=== PATIENT | female | born 1990 | race Caucasian/White ===

== ENCOUNTER → 2017-04-13 | Outpatient (CLI) | payer OTHER | END | disposition home or self-care (01) | LOC: KCIC 13:25 | DX: M25.571 Pain in right ankle and joints of right foot (principal) | CPT/HCPCS: 73610; 73630 ==

== ENCOUNTER → 2017-12-20 | Outpatient (CLI) | payer OTHER ==
[2014-11-07 17:04] VITALS: BP 114/63
--- NOTE | 2017-12-20 11:02 | RAD ---
EXAM: Right knee, 2 views; right hip, 2 views. HISTORY: Disability assessment. COMPARISON: None. FINDINGS: Right knee: 2 views the right knee are obtained. There is minimal lateral compartment spurring. There is no fracture, dislocation or subluxation. There is no joint effusion. Left hip: 2 views of the left hip are obtained. There is no fracture, dislocation or subluxation. IMPRESSION: 1. No acute osseous finding. 2. Minimal lateral compartment osteoarthritis of the right knee. Electronically signed by: Melinda Haji MD (12/20/2017 10:59 AM) [place] [id number]
== END | disposition home or self-care (01) ==
LOC: RAD 10:02
PROVIDERS: ATTEND Surgery
DX: Z02.71 Encounter for disability determination (principal); M17.11 Unilateral primary osteoarthritis, right knee
CPT/HCPCS: 73502; 73560

== ENCOUNTER → 2018-02-01 | Outpatient (CLI) | payer OTHER ==
[2014-11-07 17:04] VITALS: BP 114/63
--- NOTE | 2018-02-01 13:33 | KCIC ---
MR of the right knee Indication: Right knee pain, previous meniscus surgery, fell 2 months ago, hyperextension, instability. Technique: The standard multiplanar sequences are obtained. FINDINGS: Artifact: No significant image degradation. Medial meniscus:Intact. Lateral meniscus: Minimal blunting of the free margin of the body of the lateral meniscus on a single coronal slice. Anterior cruciate ligament: Intact Posterior cruciate ligament: Intact Medial collateral ligament: Intact. Lateral structures: * Iliotibial band: Intact. * Lateral collateral ligament: Intact. * Biceps femoris tendon: Intact * Popliteus tendon attachment: Intact Extensive mechanism: * Patellar tendon: Intact * Quadriceps tendon: Intact * Retinacular structures: Intact Fluid: Trace joint effusion. No significant Cornejo's cyst. Intra-articular bodies: None visualized Joint compartments * patellofemoral joint:Intact * medial compartment:Intact * lateral compartment:Intact Bones: No significant lesion or acute fracture. Soft tissue: Multiloculated cystic lesion within the infrapatellar fat medially this has a serpiginous morphology and could represent a ganglion cyst, or a small vascular lesion such as malformation or hemangioma. Impression: 1. Multiloculated irregular serpiginous cystic lesion within the infrapatellar fat medially, likely a ganglion cyst. This could also represent a small vascular malformation or angioma. Difficult to measure due to its very irregular morphology but measures about 3.5 cm in long axis. 2. Mild single slice blunting of the lateral meniscus on a coronal image, could be due to prior meniscectomy. Small tear is possible but not definitive. Electronically signed by: Chas Hu MD (02/01/2018 1:29 PM) [facility]
== END | disposition home or self-care (01) ==
LOC: KCIC MRI 11:20
PROVIDERS: ATTEND Physician Assistant Surgical
DX: M25.861 Other specified joint disorders, right knee (principal)
CPT/HCPCS: 73721

== ENCOUNTER → 2019-01-01 | Outpatient (CLI) | payer OTHER ==
[2014-11-07 17:04] VITALS: BP 114/63
--- NOTE | 2019-01-01 15:07 | KCIC ---
EXAM: Pelvis and bilateral hips, 5 views; lumbosacral spine, 5 views. HISTORY: Pain. COMPARISON: 12/20/2017. FINDINGS: Bilateral hips and pelvis: A frontal view of the pelvis and frontal and frog-leg views of both hips are obtained. There is no fracture, dislocation or subluxation. The femoral heads are normal in configuration. Lumbosacral spine: 5 views of the lumbosacral spine are obtained. There is no listhesis. There is mild multilevel endplate remodeling. There is disc space narrowing at L4-L5.. No fracture is seen. IMPRESSION: 1. Multilevel endplate remodeling and suspected degenerative disc space narrowing at L4-L5. 2. No acute osseous finding. Electronically signed by: Melinda Haji MD (01/01/2019 3:04 PM) [facility]
== END | disposition home or self-care (01) ==
LOC: KCIC 12:55
PROVIDERS: ATTEND Physician Assistant Medical
DX: M54.42 Lumbago with sciatica, left side (principal); M54.41 Lumbago with sciatica, right side; M25.552 Pain in left hip; M25.551 Pain in right hip
CPT/HCPCS: 72110; 73521

== ENCOUNTER → 2019-01-05 | Outpatient (CLI) | payer MEDICAID ==
[2014-11-07 17:04] VITALS: BP 114/63
--- NOTE | 2019-01-05 13:04 | KCIC ---
EXAM: Right knee, 3 views. HISTORY: Pain. COMPARISON: None. FINDINGS: 3 views of the right knee are obtained. There is no fracture, dislocation or subluxation. There is a trace joint effusion. IMPRESSION: 1. No acute osseous finding. 2. Trace right knee effusion. Electronically signed by: Melinda Haji MD (01/05/2019 1:01 PM) [id number]
== END | disposition home or self-care (01) ==
LOC: KCIC 12:14
PROVIDERS: ATTEND Physician Assistant Medical
DX: S89.91XA Unspecified injury of right lower leg, initial encounter (principal); S79.911A Unspecified injury of right hip, initial encounter; X58.XXXA Exposure to other specified factors, initial encounter; Y93.89 Activity, other specified; Y92.89 Other specified places as the place of occurrence of the external cause; Y99.8 Other external cause status
CPT/HCPCS: 73562

== ENCOUNTER → 2019-03-12 | Outpatient (CLI) | payer MEDICAID ==
[2014-11-07 17:04] VITALS: BP 114/63
--- NOTE | 2019-03-12 16:01 | KCIC ---
CERVICAL SPINE WO CONTRAST DATE: 03/12/2019 2:00 PM INDICATION: Chronic neck pain and tightness radiating to left scapula TECHNIQUE: Multiplanar multisequence magnetic resonance imaging of the cervical spine was performed without administration of intravenous contrast using the standard cervical spine protocol. COMPARISON: None. FINDINGS: Straightening of the cervical lordosis. No acute fracture. The intervertebral discs are normal. Bone marrow signal intensity is normal. The spinal cord is normal in signal intensity. On the limited views of the cranial cavity and brain, the cerebellum and maggi have normal morphology and signal characteristics. No Chiari malformation. No soft tissue abnormality. Normal signal voids are present in the vertebral arteries. No significant spinal canal stenosis or neural foraminal narrowing. IMPRESSION: No significant spinal canal stenosis or neural foraminal narrowing. Electronically signed by: Curly Newsome MD (03/12/2019 3:58 PM) [facility]
== END | disposition home or self-care (01) ==
LOC: KCIC MRI 13:34
PROVIDERS: ATTEND Physician Assistant Medical
DX: M54.2 Cervicalgia (principal)
CPT/HCPCS: 72141

== ENCOUNTER → 2019-04-12 | Outpatient (CLI) | payer MEDICAID ==
[2014-11-07 17:04] VITALS: BP 114/63
--- NOTE | 2019-04-12 12:36 | KCIC ---
Complete abdominal ultrasound 04/12/2019 10:00 AM Clinical History: Right upper abdominal pain. Technique: Ultrasound examination of the abdomen was performed, and multiple static images were submitted for review. Comparison: Hepatobiliary scan December 29, 2015 Findings: Visualized pancreas is unremarkable. Aorta and IVC are poorly visualized secondary to overlying bowel gas. The gallbladder is normal in appearance without evidence of wall thickening, stones, or sludge. No pericolic cystic fluid is seen. Sonographic Cedeño sign is negative. The liver is normal in size measuring 16 cm longitudinally. Hepatic echotexture is grossly normal. No focal hepatic lesions are seen. No intrahepatic biliary dilatation is seen. The common bile duct measures 3 mm in diameter. Right kidney is normal in appearance measuring 11.6 cm longitudinally. The spleen is top normal in size measuring between 11 and 12 cm longitudinally was otherwise unremarkable. Left kidney is unremarkable in appearance measuring 11.5 cm in length. IMPRESSION: No sonographic evidence of acute intra-abdominal abnormality Electronically signed by: Osmel Perez MD (04/12/2019 12:33 PM) [id number]
== END | disposition home or self-care (01) ==
LOC: KCIC US 09:29
PROVIDERS: ATTEND Physician Assistant Medical
DX: R10.11 Right upper quadrant pain (principal)
CPT/HCPCS: 76700

== ENCOUNTER → 2019-12-12 | Outpatient (CLI) | payer MEDICAID ==
[2014-11-07 17:04] VITALS: BP 114/63
--- NOTE | 2019-12-12 12:58 | RAD ---
INDICATION: Reason: Right Knee Pain; HX of RT Knee Arthroscopy 12-07-19 Spl. Instructions: / History: COMPARISON: None. TECHNIQUE: Grayscale, color and doppler ultrasound images were obtained of the right lower extremity venous vasculature. RIGHT: No thrombus identified in the common femoral vein, femoral vein, popliteal vein or visualized calf veins. IMPRESSION: * No thrombus identified in deep venous system of right lower extremity. Electronically signed by: Robert Mdcaniel MD (12/12/2019 12:55 PM) [id number]
== END | disposition home or self-care (01) ==
LOC: US 11:59
PROVIDERS: ATTEND Orthopaedic Surgery
DX: M25.561 Pain in right knee (principal); Z98.890 Other specified postprocedural states
CPT/HCPCS: 93971

== ENCOUNTER → 2019-12-28 | Outpatient (CLI) | payer MEDICAID ==
[2014-11-07 17:04] VITALS: BP 114/63
--- NOTE | 2019-12-28 17:04 | KCIC ---
EXAMINATION: MRI LEFT KNEE WITHOUT IV CONTRAST CLINICAL HISTORY: History of arthroscopic left knee surgery. Generalized all over pain, instability. Prior surgical hx, unsure of details. TECHNIQUE: Multiplanar multisequential images obtained through the knee without intravenous contrast. COMPARISON: Left knee radiographs 12/15/2015 FINDINGS: MENISCI: Medial Meniscus: Intact. Lateral Meniscus: Intact. LIGAMENTS: ACL: Intact PCL: Intact MCL: Intact LCL Complex: Intact CARTILAGE: Medial Femoral Condyle: Normal Medial Tibial Plateau: Normal Lateral Femoral Condyle: Small areas(s) of predominantly low grade (less than 50% thickness) cartilage loss and or fissuring with smaller area(s) of full thickness cartilage loss and or fissuring with subchondral marrow reactive/cystic changes in the posterior condyle Lateral Tibial Plateau: Normal Patella: Single high grade (greater than 50% thickness) cartilage fissure in the medial facet with linear oblique course measuring up to 1.7 cm in length, potentially creating a nondisplaced chondral flap (series 3 image 10). Trochlea: Normal TENDONS: The distal quadriceps and patellar tendons are intact. The popliteus tendon is intact. BONES AND MARROW: No evidence of acute fracture or suspicious marrow replacing process. MUSCLES: Muscle bulk and signal intensity within normal limits. JOINT FLUID AND SYNOVIUM: Trace joint effusion. No synovitis. No Cornejo's cyst. IMPRESSION: High-grade chondral fissure in the medial patella potentially creating a nondisplaced chondral flap and mild full-thickness chondral wear in the posterior lateral femoral condyle. No meniscal tear or ligamentous injury. Electronically signed by: Erwin Fagan DO (12/28/2019 5:01 PM) [id number]
== END | disposition home or self-care (01) ==
LOC: KCIC MRI 14:22
PROVIDERS: ATTEND Orthopaedic Surgery
DX: M22.42 Chondromalacia patellae, left knee (principal); Z98.890 Other specified postprocedural states
CPT/HCPCS: 73721

== ENCOUNTER → 2020-02-12 | Outpatient (CLI) | payer MEDICAID ==
[2014-11-07 17:04] VITALS: BP 114/63
[~2020-02-12] MED LIST: ASPI325T11 PO; CHOL2400 MC; DEXT30CA15 PO; FLUT1DIS3 IH; MONT10TA11 PO; NALT1TAB PO; OMEP40CA45 PO; PROAIR RESPICL90 MCG; TOPI100T8 PO
== END ==
LOC: LAB 13:51
PROVIDERS: ATTEND Orthopaedic Surgery
DX: Z01.812 Encounter for preprocedural laboratory examination (principal); Z20.828 Contact with and (suspected) exposure to other viral communicable diseases
CPT/HCPCS: U0003

== ENCOUNTER 2020-02-15 06:05 | Day surgery (SDC) | payer MEDICAID ==
[~2020-02-15] VITALS: Ht 172.7 cm; Wt 82.1 kg
[2020-02-15] MEDS ORDERED: EPINEPHrine VIAL 30 MG/30 ML VIAL ONE (06:56)
[2020-02-15] MEDS ORDERED: BUPIVACAINE MPF 0.25% 30 ML VIAL. ONE ×4 (06:56→08:33)
[2020-02-15] MEDS ORDERED: ONDANSETRON PF 4 MG/2 ML VIAL. IV PRN (07:00)
[2020-02-15] MEDS ORDERED: IV RINGERS,LACTATED 1000ML 1,000 ML IV SCH (07:00)
[2020-02-15] MEDS ORDERED: fentaNYL PF VIAL 100 MCG/2 ML VIAL IV PRN ×2 (07:00)
[2020-02-15] MEDS ORDERED: MORPHINE SULFATE 2 MG/ML VIAL. IV PRN (07:00)
[2020-02-15] MEDS ORDERED: LIDOCAINE 1% PF 2 ML VIAL. ID PRN (07:00)
[2020-02-15] MEDS ORDERED: HYDROmorphone 2 MG/ML VIAL IV PRN (07:00)
[2020-02-15] MEDS ORDERED: PROCHLORPERAZINE 10 MG/2 ML VIAL. IV PRN (07:00)
[2020-02-15] MEDS ORDERED: SEVOFLURANE 61 TO 120 MINUTES. IH ONE (07:03)
[2020-02-15] MEDS ORDERED: LIDOCAINE 2% PF 5 ML VIAL. ONE (07:03)
[2020-02-15] MEDS ORDERED: MIDAZOLAM HCL/PF 2 MG/2 ML VIAL. ONE (07:03)
[2020-02-15] MEDS ORDERED: fentaNYL PF VIAL 100 MCG/2 ML VIAL ONE ×2 (07:03→11:28)
[2020-02-15] MEDS ORDERED: PROPOFOL 10 MG/ML (20ML) VIAL. IV ONE ×2 (07:03→10:52)
[2020-02-15] MEDS ORDERED: ONDANSETRON PF 4 MG/2 ML VIAL. ONE (07:03)
[2020-02-15] MEDS ORDERED: DEXAMETHASONE SOD PHOS 4 MG/ML VIAL ONE (07:03)
[2020-02-15] MEDS ORDERED: BUPIVACAINE-EPI 0.25%-1:200000 MPF 30 ML VIAL. INJ ONE ×2 (07:15)
[2020-02-15] MEDS ORDERED: PROP20TA PO (07:21)
[2020-02-15 08:28] LABS: PREG TEST PT QUAL NEGATIVE (NEG)
[2020-02-15] MEDS ORDERED: PHENYLEPHRINE in 0.9% NACL PF 1 MG/10 ML SYRINGE. IV ONE (10:40)
[2020-02-15] MEDS ORDERED: ePHEDrine PF IN SALINE 50 MG/10 ML SYRINGE. IV ONE (10:40)
[2020-02-15] MEDS ORDERED: GLYCOPYRROLATE 1 MG/5 ML VIAL. ONE (11:03)
--- NOTE | 2020-02-15 11:36 | PDOC4 ---
Operative Note Operative Note Date of Procedure: February 15, 2020 Preoperative Diagnosis: left knee chondromalacia Postoperative Diagnosis: left knee chondromalacia Procedures Performed: left knee arthroscopy with shaving chondroplasty, and arthroscopic lateral release Surgeon: Dave Mederos MD Anesthesia: General Estimated Blood Loss: 5 mL Specimens: none Drains: none Complications: none Tourniquet time: approximately 30 minutes at 300 mm Hg Indications for Procedure: The patient is a 29-year-old with left knee pain, unrelieved with nonoperative treatment. Exam and MRI are consistent with chondromalacia and possible loose chondral flap. We talked about the risks and benefits of proceeding with an arthroscopic procedure. We talked about potential risks of ongoing pain, progressive arthritis, bleeding, infection, blood clots, or other potential surgical or anesthetic complications. All of the patient's questions about surgery were answered and they desired to proceed. Written consent was obtained. Description of Operation: The patient was identified in the preoperative holding area. The correct left knee was marked by me. The patient was taken to the operating room, where a general anesthetic was used. Preoperative antibiotics were given intravenously. A time-out procedure was performed. A tourniquet was placed on the upper thigh. Local anesthetic 20 mL of 0.5% bupivacaine was injected using sterile technique into the knee joint. The limb was prepared circumferentially with ChloraPrep solution and sterile waterproof arthroscopy drapes were applied. The limb was exsanguinated with an Esmarch bandage and the tourniquet was inflated. Lateral and medial arthroscopy portals were established. There was moderate ante rior synovitis in the anterior compartment, and synovectomy was performed for visualization The medial meniscus was normal and stable to probing. The medial tibiofemoral joint showed normal articular surfaces so no chondroplasty was required. The intercondylar notch was free of loose bodies, and the ACL was intact. The lateral tibiofemoral joint was examined. The lateral meniscus was normal. The lateral articular surfaces showed chondromalacia Out[place]bridge grade II, so a shaving chondroplasty was performed removing loose unstable fragments of articular cartilage. There is fissuring anteriorly to posteriorly on the lateral tibial articular surface and fibrillation of the lateral tibial cartilage. The patella had an unusual area of chondromalacia with a blister or softening over a large area nearly 20 x 20 mm, without any break in the surface of the cartilage. This starts at the lateral facet, about 2 or 3 mm from the edge of the lateral patella, extends throughout the midportion of the patella and into the medial facet. It likewise extends from near the inferior pole of the patella to above the midportion of the patella. The probe shows this area of cartilage able to be depressed, similar to a blister, but without any loose flaps. I am afraid if I start removing cartilage I will leave her with an extensive area of cartilage loss. There does seem to be excess pressure, and a tight lateral retinaculum. My hope is that with the lateral release, this cartilage blister can heal and stabilize. The alternative I believe would be a large patellar osteochondral allograft, approximately 20 mm in diameter. Patellar tracking was assessed arthroscopically, at the patella is tilted laterally. An arthroscopic lateral release was performed with the Revenew Edge thermal energy device from the distal portion of the vastus lateralis, to the lateral portal. Evaluation of patellar tracking after the release shows improved alignment and less tilt of the patella and better distribution patellofemoral contact with slight flexion. Copious irrigation was used to drain all chondral fragments, and the knee was drained of fluid. The portals were closed with #3-0 Prolene interrupted sutures. Additional local anesthetic, 20 mL of 0.5% bupivacaine with epinephrine was injected. A bulky sterile dressing was applied and the tourniquet was released. Needle and sponge counts were correct and there were no apparent complications. DAVE MEDEROS MD Feb 15, 2020 11:36
[2020-02-15 11:40] VITALS: BP 116/71
[2020-02-15] MEDS ORDERED: oxyCODONE/APAP 5/325 1 TAB TABLET ONE (12:22)
[2020-02-15] MEDS ORDERED: oxyCODONE/APAP 5/325 1 TAB TABLET PO ONE (12:30)
[2020-02-15] MEDS ORDERED: oxyCODONE/APAP 5/325 1 TAB TABLET PO PRN (12:45)
== END 2020-02-15 12:45 | disposition home or self-care (01) ==
LOC: SURG 06:05
PROVIDERS: ATTEND Orthopaedic Surgery
DX: M94.262 Chondromalacia, left knee (principal); M65.88 Other synovitis and tenosynovitis, other site; F41.9 Anxiety disorder, unspecified; G43.909 Migraine, unspecified, not intractable, without status migrainosus; J45.909 Unspecified asthma, uncomplicated; E66.9 Obesity, unspecified; K21.9 Gastro-esophageal reflux disease without esophagitis; F17.210 Nicotine dependence, cigarettes, uncomplicated; Z79.82 Long term (current) use of aspirin; Z79.899 Other long term (current) drug therapy; Z98.890 Other specified postprocedural states; Z91.040 Latex allergy status; Z88.8 Allergy status to other drugs, medicaments and biological substances
CPT/HCPCS: 29873; 84703; A7015; J0171; J0690; J1100; J2250; J2370; J2405; J2704; J3010; J3490; J7120

== ENCOUNTER → 2020-03-26 | Outpatient (CLI) | payer MEDICAID ==
[~2020-03-26] MED LIST changes: +CYCL10TA2 PO; +MIDO10TA PO; -MONT10TA11 PO; +MONT10TA94 PO; +OXYC1TAB19 PO; +PROP20TA PO
--- NOTE | 2020-03-26 16:13 | KCIC ---
EXAM: MRI RIGHT KNEE DATE: 03/26/2020 1:45 PM CLINICAL INDICATION: RIGHT KNEE PAIN, Two prior knee surgeries total. COMPARISON: 03/20/2020. TECHNIQUE: Multiplanar, multisequence MRI of the right knee was performed without contrast. FINDINGS: Small knee joint effusion. No Cornejo's cyst. The ACL and PCL are intact. The MCL, fibular collateral ligament, biceps femoris and IT band are intact. Popliteus is intact, nor mal in signal and morphology. Extensor mechanism is intact. Neutral patellar tracking. Medial meniscus: Trace blunting body segment medial meniscus likely from prior partial meniscectomy c hange. No discrete meniscal tear is seen. Lateral meniscus: Intact Deformity of Hoffa's fat pad likely from prior arthroscopy. Suprapatellar fat pad edema may be seen w ith anterior knee pain/impingement Full-thickness cartilage defect in the posterior aspect of the lateral femoral condyle measures 6 mm transverse dimension with subchondral edema and cystic change. No fracture or osteonecrosis. IMPRESSION: 1. Full-thickness cartilage defect at the posterior aspect of the lateral femoral condyle with subch ondral edema and cystic change. 2. Postsurgical changes of prior arthroscopy are seen. Trace blunting free edge medial meniscus like ly from prior partial meniscectomy change. No definite medial or lateral meniscus tear is identified. Electronically signed by: Pipo Koehler MD (03/26/2020 4:11 PM) [id number]
== END ==
LOC: KCIC MRI 13:28
PROVIDERS: ATTEND Orthopaedic Surgery
DX: M25.461 Effusion, right knee (principal); M21.861 Other specified acquired deformities of right lower leg
CPT/HCPCS: 73721

== ENCOUNTER → 2020-03-26 | Outpatient (CLI) | payer MEDICAID ==
--- NOTE | 2020-03-29 14:28 | NUR ---
IP: Informed pt of positive COVID test and the need to quarantine for 14 days. Informed her surgery would be postponed and to followup wtih Dr. Mederos's office on Tuesday. Notified Dr. Mederos of pt's results.
== END ==
LOC: LAB 13:00
PROVIDERS: ATTEND Orthopaedic Surgery
DX: Z01.812 Encounter for preprocedural laboratory examination (principal); M25.561 Pain in right knee; U07.1 COVID-19
CPT/HCPCS: U0003

== ENCOUNTER → 2020-04-15 | Outpatient (CLI) | payer MEDICAID ==
[~2020-04-15] MED LIST changes: +MONT10TA20 PO; -MONT10TA94 PO
--- NOTE | 2020-04-16 15:00 | NUR ---
NOTIFIED LEONARDO AT DR ENRIQUE'S OFFICE OF THE POSITIVE COVID RESULT. LEONARDO IS TO NOTIFY THE PATIENT.
== END ==
LOC: LAB 13:51
PROVIDERS: ATTEND Orthopaedic Surgery
DX: Z01.812 Encounter for preprocedural laboratory examination (principal); U07.1 COVID-19; M22.42 Chondromalacia patellae, left knee; M27.5 Periradicular pathology associated with previous endodontic treatment; Z91.018 Allergy to other foods; Z91.040 Latex allergy status; Z91.048 Other nonmedicinal substance allergy status
CPT/HCPCS: U0003

== ENCOUNTER 2020-05-12 09:00 | Inpatient (IN) | payer MEDICAID ==
[~2020-05-12] VITALS: Ht 172.7 cm; Wt 86.6 kg
[2020-05-12] VITALS (9 sets, daily range): BP systolic 97–115; BP diastolic 41–72
[~2020-05-12 09:00] MED LIST changes: +BUPIVACAINE-EPI 0.25% 30 ML VIAL KIT. ONE; +DEXAMETHASONE SOD PHOS 4 MG/ML VIAL ONE; +DEXT30TA2 PO; +IV RINGERS,LACTATED 1000ML 1,000 ML IV SCH; +LIDOCAINE 2% PF 5 ML VIAL. ONE; +ONDANSETRON PF 4 MG/2 ML VIAL. ONE; +PROCHLORPERAZINE 10 MG/2 ML VIAL. IVP PRN; +PROPOFOL 10 MG/ML (20ML) VIAL. IV ONE; +fentaNYL PF VIAL 100 MCG/2 ML VIAL IVP PRN
[2020-05-12] MEDS ORDERED: fentaNYL PF VIAL 100 MCG/2 ML VIAL ONE ×3 (09:20→12:40)
--- NOTE | 2020-05-12 10:52 | PDOC1 ---
History and Physical Date of Admission Date of Admission DATE: 05/12/20 TIME: 10:49 Identification/Chief Complaint Chief Complaint Left knee pain Source Source: Chart review, Patient History of Present Illness History of Present Illness 29-year-old with left knee pain, patellar cartilage flap Past Medical History Past Medical History Anxiety. Migraine headaches. Neurogenic orthostatic hypotension. Dysautonomia. Fibromyalgia. Low back pain. Past Surgical History Past Surgical History arthroscopic knee surgery 2012 right hand cyst Left Knee arthroscopy 01/2018 Right Knee arthroscopy 04/28/18 Right Knee Scope with Synovectomy 12/07/2019 12/07/2019 Family History Family History Mother: alive, anxiety, diagnosed with Hypertension Father: alive, hypertension, anxiety, Hypertension no family history of dysautonomia or Parkinson's. Social History Smoke: No ALCOHOL: none Current Medications Current Medications Current Medications Fentanyl Citrate (Fentanyl 2ml Vial) 25 mcg PRN Q5MIN PRN IVP MILD PAIN 1-3; Start 05/12/20 at 06:00; Stop 05/13/20 at 05:59 Fentanyl Citrate (Fentanyl 2ml Vial) 50 mcg PRN Q5MIN PRN IVP MODERATE PAIN 4- 6; Start 05/12/20 at 06:00; Stop 05/13/20 at 05:59 Morphine Sulfate (Morphine Sulfate) 1 mg PRN Q10MIN PRN IVP SEVERE PAIN 7-10; Start 05/12/20 at 06:00; Stop 05/13/20 at 05:59 Ringer's Solution 1,000 ml @ 30 mls/hr Q24H IV Last administered on 05/12/20at 10:24; Start 05/12/20 at 06:00; Stop 05/12/20 at 17:59 Hydromorphone HCl (Dilaudid) 0.5 mg PRN Q10MIN PRN IVP SEVERE PAIN 7-10, 2nd CHOICE; Start 05/12/20 at 06:00; Stop 05/13/20 at 05:59 Prochlorperazine Edisylate (Compazine) 5 mg PACU PRN PRN IVP NAUSEA, MRX1; Start 05/12/20 at 06:00; Stop 05/13/20 at 05:59 Cefazolin Sodium/ Dextrose 50 ml @ 100 mls/hr 1X PREOP PRN IV PRIOR TO PROCEDU RE; Start 05/12/20 at 06:00; Stop 05/12/20 at 18:00 Bupivacaine HCl/ Epinephrine Bitart (Sensorcain-Epi 0.25% Kit) 30 ml STK-MED O NCE .ROUTE ; Start 05/12/20 at 07:09; Stop 05/12/20 at 07:09; Status DC Propofol (Diprivan) 200 mg STK-MED ONCE IV ; Start 05/12/20 at 08:51; Stop 05/12/20 at 08:51; Status DC Lidocaine HCl (Lidocaine Pf 2% Vial) 5 ml STK-MED ONCE .ROUTE ; Start 05/12/20 at 08:51; Stop 05/12/20 at 08:52; Status DC Dexamethasone Sodium Phosphate (Decadron) 4 mg STK-MED ONCE .ROUTE ; Start 05/12/20 at 08:51; Stop 05/12/20 at 08:52; Status DC Ondansetron HCl (Zofran) 4 mg STK-MED ONCE .ROUTE ; Start 05/12/20 at 08:51; Stop 05/12/20 at 08:52; Status DC Fentanyl Citrate (Fentanyl 2ml Vial) 100 mcg STK-MED ONCE .ROUTE ; Start 05/12/20 at 09:20; Stop 05/12/20 at 09:21; Status DC Active Scripts Active Reported Adderall 30 Mg Tablet (Dextroamphetamine/Amphetamine) 30 Mg Tablet 30 Mg PO DAILY Midodrine Hcl 10 Mg Tablet 10 Mg PO BID Percocet 7.5-325 Mg Tablet (Oxycodone/Acetaminophen) 1 Each Tablet 1 Tab PO PRN Q6HRS PRN Cyclobenzaprine Hcl 10 Mg Tablet 1 Tab PO DAILY Vitamin D3 (Cholecalciferol (Vitamin D3)) 2,400 Unit/1 Ml Liquid 5,000 Unit MC DAILY Advair 250-50 Diskus (Fluticasone/Salmeterol) 1 Each Disk.w.dev 1 Puff IH BID Proair Respiclick (Albuterol Sulfate) 90 Mcg Aer.pow.ba 2 Puff PRN Q6HRS PRN Omeprazole 40 Mg Capsule. 1 Cap PO QAM Topiramate 100 Mg Tablet 1 Tab PO BID Contrave ER 8-90 mg Tablet (Naltrexone HCl/Bupropion HCl) 1 Each Tablet.er 2 Tab PO BID Montelukast Sodium 10 Mg Tablet 1 Tab PO DAILY Allergies Allergies: Coded Allergies: adhesive tape (Verified Allergy, Intermediate, Rash, 03/25/20) latex (Verified Allergy, Intermediate, Rash, 03/25/20) tomato (Verified Adverse Reaction, Intermediate, Rash, 05/08/20) Physical Exam General: Alert, Cooperative HEENT: Atraumatic Lungs: Normal air movement Heart: RRR Abdomen: Soft Extremities: Other ( The incisions are benign. There is a large effusion. The calf is soft and nontender. Range of motion of the knee is pain-free except at the extremes. Still descries painful giving way of the knee. There is no evidence of neurovascular injury, DVT or infection. ) Skin: No breakdown, No significant lesion Neuro: Normal speech, Normal tone, Sensation intact Psych/Mental Status: Mental status NL, Mood NL Vitals Vitals Vital Signs Date Time Temp Pulse Resp B/P (MAP) Pulse Ox O2 Delivery O2 Flow Rate FiO2 05/12/20 09:49 97.1 84 18 112/70 100 Room Air 97.1 Labs Labs Laboratory Tests Test 05/12/20 09:24 Bedside Urine HCG, Qualitative Hcg negative (Negative) Laboratory Tests Test 05/12/20 09:24 Bedside Urine HCG, Qualitative Hcg negative (Negative) Images Images Series 3 image 13 shows the large chondral defect on the MRI of the left knee PATIENT: EDIN WEINER ACCOUNT: [id number] : 1990 LOCATION: [facility] MRI AGE: 29 SEX: F EXAM STATUS: REG CLI ORD. PHYSICIAN: DAVE ENRIQUE MD REASON: PRIOR ARTHROSCOPIC KNEE SURGERY PROCEDURE: LOWER EXT JOINT WO LT EXAMINATION: MRI LEFT KNEE WITHOUT IV CONTRAST CLINICAL HISTORY: History of arthroscopic left knee surgery. Generalized all over pain, instability. Prior surgical hx, unsure of details. TECHNIQUE: Multiplanar multisequential images obtained through the knee without intravenous contrast. COMPARISON: Left knee radiographs 12/15/2015 FINDINGS: MENISCI: Medial Meniscus: Intact. Lateral Meniscus: Intact. LIGAMENTS: ACL: Intact PCL: Intact MCL: Intact LCL Complex: Intact CARTILAGE: Medial Femoral Condyle: Normal Medial Tibial Plateau: Normal Lateral Femoral Condyle: Small areas(s) of predominantly low grade (less than 50% thickness) cartilage loss and or fissuring with smaller area(s) of full thickness cartilage loss and or fissuring with subchondral marrow reactive/cystic changes in the posterior condyle Lateral Tibial Plateau: Normal Patella: Single high grade (greater than 50% thickness) cartilage fissure in the medial facet with linear oblique course measuring up to 1.7 cm in length, potentially creating a nondisplaced chondral flap (series 3 image 10). Trochlea: Normal TENDONS: The distal quadriceps and patellar tendons are intact. The popliteus tendon is intact. BONES AND MARROW: No evidence of acute fracture or suspicious marrow replacing process. MUSCLES: Muscle bulk and signal intensity within normal limits. JOINT FLUID AND SYNOVIUM: Trace joint effusion. No synovitis. No Cornejo's cyst. IMPRESSION: High-grade chondral fissure in the medial patella potentially creating a nondisplaced chondral flap and mild full-thickness chondral wear in the posterior lateral femoral condyle. No meniscal tear or ligamentous injury. Electronically signed by: Erwin Mccoy DO (12/28/2019 5:01 PM) [id number] DICTATED and SIGNED BY: ERWIN MCCOY DO DATE: 12/28/191700 VTE Prophylaxis Ordered VTE Prophylaxis Devices: Yes VTE Pharmacological Prophylaxi: Yes Assessment/Plan Assessment/Plan She has a large chondral defect on the patella of the left knee with recurrent pain, effusions and instability. I recommended an osteochondral allograft procedure which we discussed in detail along with the expected postoperative rehab protocol. We talked about the potential risks of ongoing pain or dysfunction, failure of the cartilage graft, infection, neurovascular injury, bleeding, osteoarthritis, blood clots, or other potential surgical or anesthetic complications. All of her questions about surgery were answered and she desires to proceed. I recommended arthroscopic evaluation of the lesion prior to the op en osteochondral allograft. She agrees. Justifications for Admission Other Justification DAVE ENRIQUE MD May 12, 2020 10:52
[2020-05-12] MEDS ORDERED: BUPIVACAINE-EPI 0.25% 30 ML VIAL KIT. ONE (10:59)
[2020-05-12] MEDS ORDERED: EPINEPHrine VIAL 30 MG/30 ML VIAL ONE (11:04)
[2020-05-12] MEDS ORDERED: FAMOTIDINE 20 MG/2 ML VIAL ONE (11:19)
[2020-05-12] MEDS ORDERED: PROPOFOL 10 MG/ML (20ML) VIAL. IV ONE (11:56)
[2020-05-12] MEDS ORDERED: PHENYLEPHRINE in 0.9% NACL PF 1 MG/10 ML SYRINGE. IV ONE (11:56)
[2020-05-12] MEDS ORDERED: SEVOFLURANE 61 TO 120 MINUTES. IH ONE (12:00)
[2020-05-12] MEDS: fentaNYL PF VIAL 100 MCG/2 ML VIAL IVP PRN ×2 (12:43→12:48)
[2020-05-12] MEDS ORDERED: MORPHINE SULFATE 2 MG/ML VIAL. ONE (12:50)
[2020-05-12] MEDS ORDERED: PROCHLORPERAZINE 10 MG/2 ML VIAL. ONE (12:50)
--- NOTE | 2020-05-12 12:52 | PDOC4 ---
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 There is a 17 mm defect that I evaluated previously arthroscopically and have seen on MRI. I recommended an osteochondral allograft procedure due to the persistent pain and effusion and large defect size. The patient and I discussed the potential risks of surgery including infection, failure of the graft, blood clots, osteoarthritis, continued pain or instability or effusion, or other potential surgical or anesthetic complications. All of her questions about surgery were answered and she desired to proceed. Dominique Posey. Need there is no anesthetic into that today about 5 other cases still not what I left and now he does not need surgery. 1 probably will need surgery but not today thank you*. Procedure in Detail: The patient was identified in the preoperative holding area. The correct left knee was marked by me. She was taken to the operating room where a general anesthetic was used. Preoperative antibiotics were given intravenously. A timeout procedure was performed. The skin of the lateral knee was prepared with ChloraPrep and 20 mL of 0.25% bupivacaine with epinephrine was injected using sterile technique into the knee joint. A tourniquet was used on the upper thigh. The limb was prepared circumferentially with ChloraPrep solution and sterile drapes were applied. An impervious stockinette was used over the lower limb. An Esmarch bandage was used to exsanguinate the limb. The tourniquet was inflated to 300 mmHg. The prior lateral medial arthroscopy portals were used. The arthroscope was introduced to make sure that there were no loose fragments of cartilage within the knee, and to verify that the lesion is still present. The medial meniscus and medial femoral condyle are normal. The ACL is normal. The lateral joint line is normal. The patella shows the area of unstable cartilage which is easily punctured with an arthroscopic probe, and the area of abnormal cartilage is easily delineated from the normal cartilage by use of the probe. The arthroscope was removed. A longitudinal midline incision was used. Sharp dissection was used. Bovie electrocautery was used for hemostasis. A careful medial parapatellar arthrotomy was performed with care made not to injure the joint nor the menisci. The patella was everted. A probe was again used to palpate the cartilage and the abnormal cartilage was easily identified. A ring curette was used to debride the abnormal cartilage and to remove the calcified cartilage layer beneath this. This was a 17 mm nearly circular lesion at the medial facet of the patella slightly over the midline ridge of the patella. Sharp perpendicular cartilage preparation was performed back to healthy cartilage, using the ring curette. A stable cartilage rim remained, with perpendicular margins. The allograft extracellular matrix cartilage was then rehydrated using the described Arthrex technique. Autologous blood was used for the rehydration. Fibrin glue was also made using spun down precipitate of the patient's blood. Microfracture technique was performed using 0.025 Chuck wire on a wire belly dump driver throughout the underlying lesion. Constant saline irrigation was used during the drilling to perform the perforation and microfracture without burning the bone. The area was thoroughly dried. The pusher device was used to deploy the rehydrated cartilage matrix into the defect. A Guttenberg elevator was used to smooth the cartilage graft without leaving any of the graft proud around the circumference of the normal cartilage. Platelet rich plasma was further added to the applied graft for further rehydration and growth factor. Finally the fibrin glue layer was applied, allowed to harden for 5 minutes. The arthroscopic camera was used intermittently to photograph the open osteochondral allograft procedure. The patella was gently placed back in its normal position, with care made not to injure the graft. The arthrotomy was repaired with #1 Vicryl [id number] sutures. Additional PRP was injected into the knee joint. The skin edges were i njected with 0.25% bupivacaine with epinephrine. The subcutaneous scleral layers were closed with #2-0 Vicryl interrupted sutures. The skin layer was repaired with #3-0 Stratafix Monocryl. Xeroform and a sterile dressing were applied. Care was made not to put pressure on the patella. A knee immobilizer was applied, and the knee was kept at full extension throughout the closure and dressing and knee immobilizer application. DAVE MEDEROS MD May 12, 2020 12:52
[2020-05-12] MEDS: MORPHINE SULFATE 2 MG/ML VIAL. IVP PRN ×2 (12:55→13:05)
[2020-05-12] MEDS ORDERED: PROCHLORPERAZINE 5 MG TABLET. PO PRN (13:00)
[2020-05-12] MEDS ORDERED: diphenhydrAMINE 50 MG/ML VIAL IVP PRN (13:00)
[2020-05-12] MEDS ORDERED: CALCIUM CARBONATE 500 MG TAB.CHEW PO PRN (13:00)
[2020-05-12] MEDS ORDERED: METOCLOPRAMIDE HCL 10 MG/2 ML VIAL. IVP PRN (13:00)
[2020-05-12] MEDS ORDERED: 0.9 % SODIUM CHLORIDE 10 ML DISP.SYRIN. IV PRN (13:00)
[2020-05-12] MEDS: MONTELUKAST SODIUM 10 MG TABLET. PO SCH (13:00)
[2020-05-12] MEDS ORDERED: ZOLPIDEM 5 MG TABLET. PO PRN (13:00)
[2020-05-12] MEDS ORDERED: DEXTROSE 50% 25 GM / 50ML DISP.SYRIN. IV PRN (13:00)
[2020-05-12] MEDS ORDERED: NON FORMULARY ITEM (Albuterol Sulfate (Proair Respiclick) 2 PUFF) PRN (13:00)
[2020-05-12] MEDS ORDERED: HYDROmorphone 2 MG/ML VIAL ONE (13:06)
[2020-05-12] MEDS: HYDROmorphone 2 MG/ML VIAL IVP PRN ×4 (13:10→13:47)
[2020-05-12] MEDS ORDERED: ALBUTEROL SULFATE 2.5 MG/3 ML NEBU. NEB PRN (13:45)
[2020-05-12] MEDS: TOPIRAMATE 100 MG TABLET. PO SCH ×2 (14:00→21:19)
--- NOTE | 2020-05-12 14:05 | NUR ---
Arrived to unit by bed from PACU. Awakens easily but falls back to sleep. No c/o at this time. Dressing intact with immobilizer on left leg with ice pack. Able to wiggle toes easily, warm touch and pedal pulses + bilaterally. IVF's intact and infusing. Side rails up x's 2 with call light in reach. Mother at bedside. Cont. monitor.
[2020-05-12] MEDS: PANTOPRAZOLE 40 MG TABLET.DR. PO SCH (17:13)
[2020-05-12] MEDS: IV NORMAL SALINE 1000ML BAG 1,000 ML IV SCH (17:15)
[2020-05-12] MEDS: oxyCODONE/APAP 10/325 1 TAB TABLET PO PRN ×2 (17:18→21:19)
[2020-05-12] MEDS: ONDANSETRON PF 4 MG/2 ML VIAL. IVP SCH (17:30)
[2020-05-12] MEDS: ONDANSETRON ODT 4 MG TAB.RAPDIS. PO SCH (17:31)
[2020-05-12] MEDS: MIDODRINE 5 MG TABLET PO SCH (18:16)
[2020-05-12] MEDS ORDERED: NON FORMULARY ITEM (Fluticasone/Salmeterol (Advair 250-50 Diskus) 1 PUFF) IH SCH (21:00)
[2020-05-12] MEDS ORDERED: BUPROPION HCL PO SCH (21:00)
[2020-05-12] MEDS ORDERED: NALTREXONE HCL PO SCH (21:00)
[2020-05-12] MEDS: ASPIRIN ENTERIC COATED 325 MG TABLET.DR. PO SCH (21:19)
[2020-05-12] MEDS: BUDESONIDE 0.5 MG/2 ML NEBU. NEB SCH (22:12)
[2020-05-12] MEDS: ALBUTEROL SULFATE 2.5 MG/3 ML NEBU. NEB SCH (22:20)
[2020-05-12] MEDS: MORPHINE SULFATE 4 MG/ML VIAL. IVP PRN (23:02)
[2020-05-13 03:00] VITALS: BP 118/74
[2020-05-13] MEDS: oxyCODONE/APAP 10/325 1 TAB TABLET PO PRN ×3 (05:07→19:35)
[2020-05-13] MEDS: ONDANSETRON PF 4 MG/2 ML VIAL. IVP SCH ×3 (05:55→12:00)
[2020-05-13] MEDS: ONDANSETRON ODT 4 MG TAB.RAPDIS. PO SCH ×3 (05:56→12:00)
[2020-05-13] MEDS ORDERED: MAGNESIUM HYDROXIDE 2,400 MG/30 ML ORAL.SUSP. PO PRN (06:00)
[2020-05-13] MEDS: MORPHINE SULFATE 4 MG/ML VIAL. IVP PRN ×4 (06:25→22:43)
[2020-05-13 07:00] VITALS: BP 97/56
[2020-05-13] MEDS: ALBUTEROL SULFATE 2.5 MG/3 ML NEBU. NEB SCH ×4 (07:40→23:22)
[2020-05-13] MEDS: BUDESONIDE 0.5 MG/2 ML NEBU. NEB SCH ×2 (08:00→19:33)
[2020-05-13] MEDS ORDERED: NON FORMULARY ITEM (Dextroamphetamine/Amphetamine (Adderall 30 Mg Tablet) 30 MG) PO SCH (09:00)
[2020-05-13] MEDS: MIDODRINE 5 MG TABLET PO SCH ×2 (10:06→18:35)
[2020-05-13] MEDS: TOPIRAMATE 100 MG TABLET. PO SCH ×2 (10:07→20:51)
[2020-05-13] MEDS: MONTELUKAST SODIUM 10 MG TABLET. PO SCH (10:07)
[2020-05-13] MEDS: SENNOSIDES/DOCUSATE 8.6/50MG TABLET. PO SCH (10:07)
[2020-05-13] MEDS: PANTOPRAZOLE 40 MG TABLET.DR. PO SCH (10:07)
[2020-05-13] MEDS: ASPIRIN ENTERIC COATED 325 MG TABLET.DR. PO SCH ×2 (10:08→20:51)
[2020-05-13] MEDS: CHOLECALCIFEROL (VITAMIN D3) 5,000 UNIT CAPSULE PO SCH (10:08)
[2020-05-13] MEDS: CYCLOBENZAPRINE 10 MG TABLET. PO SCH (10:08)
[2020-05-13] MEDS: MULTIVITAMIN with MINERAL TABLET. PO SCH (10:08)
[2020-05-13 11:00] VITALS: BP 110/59
[2020-05-13] MEDS ORDERED: ONDANSETRON ODT 4 MG TAB.RAPDIS. PO PRN (12:00)
[2020-05-13] MEDS ORDERED: ONDANSETRON PF 4 MG/2 ML VIAL. IVP PRN (12:00)
[2020-05-13] MEDS: IV NORMAL SALINE 1000ML BAG 1,000 ML IV SCH (13:00)
--- NOTE | 2020-05-13 14:20 | PDOC ---
PROGRESS NOTES Date of Service DATE: 05/13/20 TIME: 14:19 Subjective Subjective My initial plan was that she would be going home today but she does not look ready to go. She is rating her pain at 8/10, she said she almost fell this morning, and she has been using IV pain medicines. She does not look ready to go. Objective Vital Signs Vital Signs Date Time Temp Pulse Resp B/P (MAP) Pulse Ox O2 Delivery O2 Flow Rate FiO2 05/13/20 12:40 97 Room Air 05/13/20 11:00 98.2 86 16 110/59 (76) 98.2 05/12/20 12:43 10.0 Physical Exam The knee dressing is dry. Calf is soft and nontender. The knee immobilizer is in place. She is able to dorsiflex and plantarflex the toes. She has severe difficulty with mobility Labs Laboratory Tests Test 05/12/20 09:24 Bedside Urine HCG, Qualitative Hcg negative (Negative) Assessment Assessment POD# 1 after osteochondral allograft of the left patella Plan Plan of Care Continue with inpatient care for now. Hopefully she can discharge to home tomorrow. Continue physical therapy. Pain control. Justicifation of Admission Dx: Justifications for Admission: Justification of Admission Dx: Yes DAVE ENRIQUE MD May 13, 2020 14:20
[2020-05-13 15:00] VITALS: BP 99/58
[2020-05-13] MEDS ORDERED: BISACODYL 10 MG SUPP.RECT. PR PRN (16:00)
[2020-05-13 19:30] VITALS: BP 123/78
[2020-05-13 23:21] VITALS: BP 101/47
[2020-05-14] MEDS: oxyCODONE/APAP 10/325 1 TAB TABLET PO PRN ×5 (03:13→23:20)
[2020-05-14 03:21] VITALS: BP 118/52
[2020-05-14] MEDS: MORPHINE SULFATE 4 MG/ML VIAL. IVP PRN ×3 (06:28→20:53)
[2020-05-14 07:00] VITALS: BP 92/51
[2020-05-14] MEDS: BUDESONIDE 0.5 MG/2 ML NEBU. NEB SCH ×2 (07:23→20:51)
[2020-05-14] MEDS: ALBUTEROL SULFATE 2.5 MG/3 ML NEBU. NEB SCH ×3 (07:24→20:52)
[2020-05-14] MEDS: ASPIRIN ENTERIC COATED 325 MG TABLET.DR. PO SCH ×2 (08:09→20:52)
[2020-05-14] MEDS: MULTIVITAMIN with MINERAL TABLET. PO SCH (08:09)
[2020-05-14] MEDS: PANTOPRAZOLE 40 MG TABLET.DR. PO SCH (08:09)
[2020-05-14] MEDS: CYCLOBENZAPRINE 10 MG TABLET. PO SCH (08:10)
[2020-05-14] MEDS: TOPIRAMATE 100 MG TABLET. PO SCH ×2 (08:10→20:52)
[2020-05-14] MEDS: CHOLECALCIFEROL (VITAMIN D3) 5,000 UNIT CAPSULE PO SCH (08:10)
[2020-05-14] MEDS: SENNOSIDES/DOCUSATE 8.6/50MG TABLET. PO SCH (08:10)
[2020-05-14] MEDS: MONTELUKAST SODIUM 10 MG TABLET. PO SCH (08:10)
[2020-05-14] MEDS: MIDODRINE 5 MG TABLET PO SCH ×2 (08:12→17:48)
[2020-05-14 11:00] VITALS: BP 101/48
[2020-05-14] MEDS: IV NORMAL SALINE 1000ML BAG 1,000 ML IV SCH (13:00)
[2020-05-14 15:00] VITALS: BP 92/49
--- NOTE | 2020-05-14 18:40 | PDOC ---
PROGRESS NOTES Date of Service DATE: 05/14/20 TIME: 18:38 Subjective Subjective She does not feel well. She said therapy told her she needs more therapy before she can safely go home. She is still requiring IV pain medications. She feels like the leg is swollen and it is difficult to mobilize in the knee immobilizer. Objective Vital Signs Vital Signs Date Time Temp Pulse Resp B/P (MAP) Pulse Ox O2 Delivery O2 Flow Rate FiO2 05/14/20 17:48 116 92/49 05/14/20 15:17 Room Air 05/14/20 15:00 98.6 18 98 98.6 05/14/20 08:00 10.0 Physical Exam The knee immobilizer is in place as it should be. There is some foot swelling and edema which is typical postoperative. There is no evidence of DVT, neurovascular injury, nor compartment syndrome. She does appear very immobile and has difficulty even getting up from the bed. Assessment Assessment POD# 2 after open osteochondral allograft left knee Plan Plan of Care She is progressing but slowly. She will need some additional physical therapy before she can safely discharged home. IV pain medicines when needed but she should transition to oral pain medicines in preparation for discharge home jenny gonsales. Continue aspirin daily for DVT prophylaxis particularly in light of her immobility. Justicifation of Admission Dx: Justifications for Admission: Justification of Admission Dx: Yes DAVE ENRIQUE MD May 14, 2020 18:40
[2020-05-14 19:55] VITALS: BP 95/59
[2020-05-14 23:43] VITALS: BP 98/60
[2020-05-15] MEDS: ALBUTEROL SULFATE 2.5 MG/3 ML NEBU. NEB SCH ×3 (01:00→12:54)
[2020-05-15] MEDS: oxyCODONE/APAP 10/325 1 TAB TABLET PO PRN ×3 (03:20→14:37)
[2020-05-15 03:40] VITALS: BP 96/63
[2020-05-15] MEDS: MORPHINE SULFATE 4 MG/ML VIAL. IVP PRN (05:42)
[2020-05-15] MEDS: IV NORMAL SALINE 1000ML BAG 1,000 ML IV SCH (06:05)
[2020-05-15] MEDS: BUDESONIDE 0.5 MG/2 ML NEBU. NEB SCH (07:08)
[2020-05-15 07:31] VITALS: BP 94/57
[2020-05-15] MEDS: TOPIRAMATE 100 MG TABLET. PO SCH (08:33)
[2020-05-15] MEDS: MONTELUKAST SODIUM 10 MG TABLET. PO SCH (08:33)
[2020-05-15] MEDS: MIDODRINE 5 MG TABLET PO SCH (08:33)
[2020-05-15] MEDS: SENNOSIDES/DOCUSATE 8.6/50MG TABLET. PO SCH (08:33)
[2020-05-15] MEDS: CHOLECALCIFEROL (VITAMIN D3) 5,000 UNIT CAPSULE PO SCH (08:33)
[2020-05-15] MEDS: CYCLOBENZAPRINE 10 MG TABLET. PO SCH (08:34)
[2020-05-15] MEDS: ASPIRIN ENTERIC COATED 325 MG TABLET.DR. PO SCH (08:34)
[2020-05-15] MEDS: PANTOPRAZOLE 40 MG TABLET.DR. PO SCH (08:34)
[2020-05-15] MEDS: MULTIVITAMIN with MINERAL TABLET. PO SCH (08:34)
[2020-05-15 11:06] VITALS: BP 91/52
[2020-05-15 14:37] VITALS: BP 98/49
--- NOTE | 2020-05-15 17:32 | PDOC ---
PROGRESS NOTES Date of Service DATE: 05/15/20 TIME: 17:28 Subjective Subjective Feeling better. Progressed in PT and safe now with knee immobilizer Objective Vital Signs Vital Signs Date Time Temp Pulse Resp B/P (MAP) Pulse Ox O2 Delivery O2 Flow Rate FiO2 05/15/20 16:16 Room Air 05/15/20 14:37 98.7 115 18 98/49 (65) 99 98.7 05/14/20 08:00 10.0 Physical Exam Dressing and knee immobilizer were adjusted because they keep sliding down. Calf soft and NT. NVI. Assessment Assessment POD# 3 after osteochondral allograft Plan Plan of Assisted today. Office FU. No knee ROM yet. Justicifation of Admission Dx: Justifications for Admission: Justification of Admission Dx: Yes DAVE ENRIQUE MD May 15, 2020 17:32
--- NOTE | 2020-05-15 17:50 | PDOC3 ---
Discharge Summary Visit Information Date of Admission: May 12, 2020 Date of Discharge: May 15, 2020 Final Diagnosis Chondromalacia patella left knee Brief Hospital Course Allergies Allergies Coded Allergies Type Severity Reaction Last Updated Verified adhesive tape Allergy Intermediate Rash 03/25/20 Yes latex Allergy Intermediate Rash 03/25/20 Yes tomato Adverse Reaction Intermediate Rash 05/08/20 Yes Vital Signs Vital Signs Date Time Temp Pulse Resp B/P (MAP) Pulse Ox O2 Delivery O2 Flow Rate FiO2 05/15/20 16:16 Room Air 05/15/20 14:37 98.7 115 18 98/49 (65) 99 98.7 05/14/20 08:00 10.0 Brief Hospital Course 29 year old admitted with a full-thickness cartilage defect of the patella, for osteochondral allograft procedure which was performed the day of admission. She was on antibiotics postoperatively for 24 hours due to the allograft. Physical therapy was required because she is to stay nonweightbearing and protect the graft by keeping the knee immobile initially in the knee immobilizer. She progressed slowly with therapy but is now stable for discharge. Discharge Information Condition at Discharge: Stable Follow Up: Weeks Disposition/Orders: D/C to Home Scheduled Cholecalciferol (Vitamin D3) (Vitamin D3), 5,000 UNIT MC DAILY, (Reported) Cyclobenzaprine Hcl (Cyclobenzaprine Hcl), 1 TAB PO DAILY, (Reported) Dextroamphetamine/Amphetamine (Adderall 30 Mg Tablet), 30 MG PO DAILY, (Reported) Fluticasone/Salmeterol (Advair 250-50 Diskus), 1 PUFF IH BID, (Reported) Midodrine Hcl (Midodrine Hcl), 10 MG PO BID, (Reported) Montelukast Sodium (Montelukast Sodium), 1 TAB PO DAILY, (Reported) Naltrexone HCl/Bupropion HCl (Contrave ER 8-90 mg Tablet), 2 TAB PO BID, (Reported) Omeprazole (Omeprazole), 1 CAP PO QAM, (Reported) Topiramate (Topiramate), 1 TAB PO BID, (Reported) Scheduled PRN Albuterol Sulfate (Proair Respiclick), 2 PUFF PRN Q6HRS PRN for WHEEZING, ( Reported) Oxycodone/Apap 7.5-325 (Percocet 7.5-325 Mg Tablet ), 1 TAB PO PRN Q6HRS PRN for PAIN, (Reported) Discontinued Medications Dextroamphetamine/Amphetamine (Dextroamp-Amphet Er 30 Mg Cap), 1 CAP PO DAILY, (Reported) Patient Instructions Patient Instructions Continue with the knee immobilizer, no knee range of motion for this first 2 weeks. Office follow-up as scheduled on 05/27/2020. Take an aspirin daily. Remain nonweightbearing. Justicifation of Admission Dx: Justifications for Admission: Justification of Admission Dx: Yes DAVE ENRIQUE MD May 15, 2020 17:50
--- NOTE | 2020-05-15 18:38 | NUR ---
Patient discharge home today with self care via wheelchair accompanied by this nurse and father. Patient is stable, IV removed, and discharge paperwork given to patient. Patient verbalized understanding of follow up and discharge instruction.
== END 2020-05-15 18:40 | disposition home or self-care (01) | DRG 516 ==
LOC: SURG 09:00 → 4 NORTH 12:52 → OBSVTOIN 05-15 12:16
PROVIDERS: ADMIT Orthopaedic Surgery; ATTEND Orthopaedic Surgery
PROC: 0SUD0KZ Supplement Left Knee Joint with Nonautologous Tissue Substitute, Open Approach (ICD-10-PCS; principal; 2020-05-12 10:15)
DX: M22.42 Chondromalacia patellae, left knee (principal); G90.3 Multi-system degeneration of the autonomic nervous system; Z91.040 Latex allergy status; Z91.018 Allergy to other foods; Z82.49 Family history of ischemic heart disease and other diseases of the circulatory system; M79.7 Fibromyalgia; F41.9 Anxiety disorder, unspecified; G43.909 Migraine, unspecified, not intractable, without status migrainosus; G90.1 Familial dysautonomia [Riley-Day]; M54.5 Low back pain
CPT/HCPCS: 81025; 94640; 94760; G0378; G0379; J0171; J0690; J0780; J1100; J1170; J2270; J2370; J2405; J2704; J3010; J3490; J7030; 97110-GO; 97110-GP; 97116-GP; 97530-GO; 97530-GP; 97535-GO; J7613; J7626

== ENCOUNTER → 2020-06-13 | Outpatient (CLI) | payer MEDICAID ==
[2020-05-15 14:37] VITALS: BP 98/49
[~2020-06-13] MED LIST changes: -BUPIVACAINE-EPI 0.25% 30 ML VIAL KIT. ONE; +CONTRAST GIVEN. MC PRN; -DEXAMETHASONE SOD PHOS 4 MG/ML VIAL ONE; +GADOTERATE 5 MMOL/10ML VIAL. INT ART ONE; +IOHEXOL 300 MG/ML 50 ML VIAL. INT ART ONE; -IV RINGERS,LACTATED 1000ML 1,000 ML IV SCH; +LIDOCAINE 1% Multi-Dose 20 ML VIAL. ID ONE; -LIDOCAINE 2% PF 5 ML VIAL. ONE; -ONDANSETRON PF 4 MG/2 ML VIAL. ONE; -PROCHLORPERAZINE 10 MG/2 ML VIAL. IVP PRN; -PROPOFOL 10 MG/ML (20ML) VIAL. IV ONE; -fentaNYL PF VIAL 100 MCG/2 ML VIAL IVP PRN
--- NOTE | 2020-06-13 17:02 | KCIC ---
MRI RIGHT WRIST ARTHROGRAM Clinical indications: Right wrist pain after a fall. TECHNIQUE: After intra-articular injection of gadolinium into the radial scaphoid joint, post arthrog mickey MRI sequences of the right wrist were performed in all 3 planes. Intra-articular injection of marcus olinium was performed by another radiologist and is dictated under separate report. FINDINGS: Contrast is seen extending into the distal radial ulnar joint compartment due to a tear or defect of the radial attachment of the triangular fibrocartilage complex. Scaphoid lunate ligament an d lunate triquetrum ligament are intact and there is no contrast within the mid carpal joint. No bone contusion or fracture or marrow infiltrative process is seen. The scaphoid bone is intact. No avascu lar necrosis of the scaphoid bone or lunate bone is seen. The pocuexsg-ricory-mhuacc axis is normally aligned. The carpal tunnel is unremarkable and no abnormal enlargement or edema of the median nerve is evident. No tenosynovitis of the flexor tendons is seen. No tenosynovitis of the extensor tendons is seen. No tendon tear is evident. IMPRESSION: Tear or defect of the triangular fibrocartilage complex attachment to the radius. No acute fracture or avascular necrosis. Electronically signed by: Mele Maurice MD (06/13/2020 4:59 PM) [id number]
--- NOTE | 2020-06-13 17:59 | KCIC ---
Right wrist arthrogram 06/13/2020 CLINICAL HISTORY: Right wrist pain post injury and mid May. TECHNIQUE: After the risks and benefits of the procedure were explained to the patient, written infor med consent was obtained. The dorsal skin surface of the right wrist was prepped and draped in steril e fashion. 1 percent lidocaine was used as a local anesthetic. Under fluoroscopic guidance 25-gauge n eedle was placed into the radiocarpal joint. 5 cc of a solution containing Omnipaque 300, normal sali ne, lidocaine and 0.1 cc of Gadavist was injected into the right radiocarpal joint under fluoroscopy. The patient tolerated the injection well there were no immediate complications. The patient was take n to MRI for further imaging evaluation. The total fluoroscopic time is 1 minute 23 seconds. 2 digita l spot radiographs were obtained. FINDINGS: Contrast is seen throughout the radiocarpal joint. No contrast extension into the mid carpa l joint is seen. Contrast extends into the distal radial ulnar joint consistent with a TFCC tear. IMPRESSION: Technically successful right wrist arthrogram prior to MRI examination as discussed above . Electronically signed by: Clarke Rider MD (06/13/2020 5:57 PM) [id number]
== END | disposition home or self-care (01) ==
LOC: KCIC 12:28
PROVIDERS: ATTEND Orthopaedic Surgery
DX: M25.531 Pain in right wrist (principal); J45.909 Unspecified asthma, uncomplicated; E66.9 Obesity, unspecified; K21.9 Gastro-esophageal reflux disease without esophagitis; F41.9 Anxiety disorder, unspecified; Z91.81 History of falling; Z79.899 Other long term (current) drug therapy; Z98.890 Other specified postprocedural states; Z91.040 Latex allergy status; Z88.8 Allergy status to other drugs, medicaments and biological substances
CPT/HCPCS: 25246; 73219; 77002; A9575; J3490; Q9967; 73115

== ENCOUNTER → 2020-09-12 | Outpatient (CLI) | payer MEDICAID ==
[~2020-09-12] MED LIST changes: -CONTRAST GIVEN. MC PRN; -GADOTERATE 5 MMOL/10ML VIAL. INT ART ONE; -IOHEXOL 300 MG/ML 50 ML VIAL. INT ART ONE; -LIDOCAINE 1% Multi-Dose 20 ML VIAL. ID ONE; -OMEP40CA45 PO; +OMEP40CA7 PO
--- NOTE | 2020-09-12 15:32 | KCIC ---
EXAM: Pelvis and right hip, 3 views; lumbar spine, 3 views; thoracic spine, 3 views. HISTORY: Pain. COMPARISON: None. FINDINGS: Pelvis and right hip: A frontal view the pelvis and 2 views of the right hip are obtained. There is n o fracture, dislocation or subluxation. The femoral heads are normal in configuration. Lumbar spine: 5 views of the lumbar spine are obtained. There is degenerative endplate remodeling at multiple levels. There is disc space narrowing at L4-L5. Thoracic spine: 3 views of the thoracic spine are obtained. There is mild S-shaped thoracic scoliosis . There is no listhesis. The vertebral flores are normal in height. There is mild multilevel endplate r emodeling. IMPRESSION: 1. No acute osseous finding. 2. Degenerative change involving the thoracic and lumbar spine, described above. 3. Mild thoracic scoliosis. Electronically signed by: Melinda Haji MD (09/12/2020 3:29 PM) [id number]
== END ==
LOC: KCIC 14:37
PROVIDERS: ATTEND Physician Assistant Medical
DX: M47.815 Spondylosis without myelopathy or radiculopathy, thoracolumbar region (principal); M41.84 Other forms of scoliosis, thoracic region; M25.551 Pain in right hip; M54.6 Pain in thoracic spine
CPT/HCPCS: 72072; 72110; 73502

== ENCOUNTER → 2020-10-07 | Outpatient (CLI) | payer MEDICAID ==
[2020-09-23 15:00] VITALS: BP 82/47
--- NOTE | 2020-10-07 16:00 | KCIC ---
MRI of the thoracic spine without contrast 10/07/2020 CLINICAL HISTORY: Mid back pain. TECHNIQUE: Unenhanced T1-weighted, T2-weighted and inversion recovery sagittal and T1-weighted T2-zuhair ghted axial images of the thoracic spine were obtained. T2-weighted sagittal images of the cervical, thoracic and lumbar spine were obtained for localization purposes. FINDINGS: Comparison is made to radiographs of the thoracic spine dated 09/12/2020. Very mild S-shaped curvature of the thoracolumbar spine is seen. Degenerative signal changes are seen involving all of the disks of the thoracic spine. The marrow signal of the visualized bony structure s is within normal limits. The thoracic spinal cord is normal in morphology, position, and signal jake racteristics. Degenerative changes are seen involving the thoracic disc spaces consisting of minimal generalized di sc bulges and degenerative changes involving the facet joints throughout the thoracic disc spaces. A superimposed central/left paracentral focal disc osteophyte complex is seen at T12-L1 which measures 4 mm in AP diameter. These findings do not result in significant central spinal canal or neural alex inal stenosis at any level. IMPRESSION: Degenerative changes are seen involving the thoracic spine as discussed above. These find ings do not result in significant central spinal canal or neural foraminal stenosis at any level. Electronically signed by: Clarke Rider MD (10/07/2020 3:57 PM) [id number]
--- NOTE | 2020-10-07 16:12 | KCIC ---
MRI of the lumbar spine without contrast 10/07/2020 CLINICAL HISTORY: Chronic low back pain. Bilateral leg numbness. TECHNIQUE: Unenhanced T1-weighted and T2-weighted sagittal and axial and inversion recovery sagittal images of the lumbar spine were obtained. FINDINGS: Comparison is made to radiographs of the lumbar spine dated 09/12/2020. Minimal S-shaped curvature of the thoracolumbar spine is seen. Degenerative signal changes and loss o f height are seen involving the T12-L1, L3-4 and L4-5 discs predominantly. Degenerative signal change s are seen within the marrow surrounding these discs. The conus medullaris is normal morphology, posi tion, and signal characteristics. At the T12-L1 disc space there is a mild generalized disc bulge. Superimposed on this disc bulge is a central/left paracentral disc osteophyte complex. This measures 4 mm in AP diameter. Degenerative ch anges are seen involving the facet joints bilaterally. These findings do not result in significant ce ntral spinal canal or neural foraminal stenosis. At the L1-2 and L2-3 disc spaces there are minimal generalized disc bulges. Degenerative changes are seen involving the facet joints bilaterally. There is mild ligamentum flavum hypertrophy bilaterally. These findings do not result in significant central spinal canal or neural foraminal stenosis. At the L3-4 disc space there is a mild to moderate generalized disc bulge. Degenerative changes are s een involving the facet joints bilaterally. There is mild ligamentum flavum hypertrophy bilaterally. These findings when combined do not result in significant central spinal canal or neural foraminal st enosis. At the L4-5 disc space there is a mild to moderate generalized disc bulge. Degenerative changes are s een involving the facet joints bilaterally. There are small facet joint effusions bilaterally. There is mild ligamentum flavum hypertrophy bilaterally. These findings when combined result in mild centra l spinal canal stenosis. No neural foraminal stenosis is seen. At the L5-S1 disc space there is a mild generalized disc bulge. Degenerative changes are seen involvi ng the facet joints bilaterally. There are small facet joint effusions bilaterally. These findings wh en combined do not result in significant central spinal canal or neural foraminal stenosis. IMPRESSION: The changes of degenerative disc disease are seen involving the lumbar spine. These findi ngs result in mild central spinal canal stenosis at L4-5. No neural foraminal stenosis is seen. Electronically signed by: Clarke Rider MD (10/07/2020 4:10 PM) [id number]
--- NOTE | 2020-10-07 17:22 | KCIC ---
EXAMINATION: MRI RIGHT LOWER EXTREMITY JOINT WITHOUT INDICATIONS: Right hip and groin pain for the last 2 months.. TECHNIQUE: Multiplanar multisequence MRI of the right hip was obtained without contrast. COMPARISON: Radiograph 09/12/2020. FINDINGS: BONES AND CARTILAGE: No acute fracture. Marrow signal is normal. Articular cartilage is intact. The p roximal femur and acetabulum are normal in morphology. LABRUM: No definite labral tear on arthrogram exam. MUSCLES, TENDONS, AND BURSAE: The gluteus medius and minimus, hamstrings, iliopsoas, rectus femoris, and adductor tendons are intact. Muscles are normal. The ischiofemoral space is normal. No bursitis. OTHER: No joint effusion or synovitis. The ligamentum teres is intact. Subcutaneous soft tissues norm al. IMPRESSION: No acute abnormality. If further evaluation for labral tear needed, consider MRI arthrogr am, which is more sensitive. Electronically signed by: Hiral Vera MD (10/07/2020 5:20 PM) [id number]
== END ==
LOC: KCIC MRI 12:19
PROVIDERS: ATTEND Physician Assistant Medical
DX: M47.817 Spondylosis without myelopathy or radiculopathy, lumbosacral region (principal); M47.815 Spondylosis without myelopathy or radiculopathy, thoracolumbar region; M51.36 Other intervertebral disc degeneration, lumbar region; M48.061 Spinal stenosis, lumbar region without neurogenic claudication; M54.42 Lumbago with sciatica, left side; M25.78 Osteophyte, vertebrae; M25.48 Effusion, other site; M25.551 Pain in right hip
CPT/HCPCS: 72146; 72148; 73721

== ENCOUNTER → 2021-02-20 | Outpatient (CLI) | payer MEDICAID ==
[2020-09-23 15:00] VITALS: BP 82/47
[~2021-02-20] MED LIST changes: +CYCL10TA19 PO; -CYCL10TA2 PO; +MONT-38 PO; -MONT10TA20 PO
--- NOTE | 2021-02-20 11:26 | KCIC ---
EXAM: Right knee, 3 views. HISTORY: Pain. COMPARISON: 05/27/2020. FINDINGS: 3 views of the right knee are obtained. There is no fracture, dislocation or subluxation. T here is minimal medial compartment spurring. There is a small joint effusion. IMPRESSION: 1. Minimal medial compartment osteoarthritis of the right knee. 2. Small right knee effusion. Electronically signed by: Melinda Haji MD (02/20/2021 11:24 AM) [id number]
--- NOTE | 2021-02-20 11:27 | KCIC ---
EXAM: Bilateral ankles, 3 views. HISTORY: Pain. COMPARISON: None. FINDINGS: 3 views of both ankles are obtained. There is no fracture, dislocation or subluxation. The ankle mortise these are intact. There is no osteochondral lesion. There are small right and tiny left plantar spurs. IMPRESSION: No acute osseous finding. Electronically signed by: Melinda Haji MD (02/20/2021 11:25 AM) [id number]
== END ==
LOC: KCIC 11:01
PROVIDERS: ATTEND Physician Assistant Medical
DX: M25.461 Effusion, right knee (principal); M77.32 Calcaneal spur, left foot; M77.31 Calcaneal spur, right foot; M25.571 Pain in right ankle and joints of right foot; M25.572 Pain in left ankle and joints of left foot; M25.561 Pain in right knee
CPT/HCPCS: 73562; 73610-50

== ENCOUNTER → 2021-03-12 | Outpatient (CLI) | payer MEDICAID ==
[2020-09-23 15:00] VITALS: BP 82/47
--- NOTE | 2021-03-12 11:56 | KCIC ---
Examination: MRI of the right knee without contrast HISTORY: History of right knee pain, instability, swelling COMPARISON: 03/26/2020 TECHNIQUE: Multiplanar, multisequence MR imaging of the right knee was performed without contrast FINDINGS: The anterior cruciate ligament, posterior cruciate ligament appears intact.The medial, lateral menisc us appears intact. The medial collateral ligament appears intact. Lateral collateral ligamentous comp key including the fibular collateral ligament, biceps femoris and popliteus tendon appears intact. Sm all knee joint effusion. The extensor mechanism is intact. The medial, lateral retinaculum appears in tact. Mild superficial fraying of cartilage identified in the medial, lateral, patellofemoral compart ments. There is intermediate moderate T1 signal in the Hoffa's fat identified extending anterior to the ante rior horn of the lateral meniscus and extending laterally deep to the iliotibial band likely moderate scarring changes. Mild joint space loss medial, lateral and patellofemoral compartments. IMPRESSION: 1. Intermediate moderate T1 signal identified in the Hoffa's fat identified extending anterior to th e anterior horn of the lateral meniscus and extending laterally deep to the iliotibial band likely mo derate scarring changes. 2. Small knee joint effusion. 3. Grade I chondromalacia medial, lateral, patellofemoral compartments. Electronically signed by: Moises Miranda MD (03/12/2021 11:53 AM) [id number]
--- NOTE | 2021-03-12 12:42 | KCIC ---
MRI STUDY OF THE LEFT KNEE WITHOUT CONTRAST Clinical indications: Chronic left knee pain. Instability and crepitus and swelling. History of knee surgery. TECHNIQUE: Noncontrast MRI sequences of the left knee were performed in all 3 planes. FINDINGS: The anterior and posterior cruciate ligaments are intact. The quadriceps and patellar tendo ns are intact. The inner articular edge of the body lateral meniscus is blunted. This could represent a small tear here. This is seen best on series 8 and image 13. No articular surface tear of the medi al meniscus is seen. Medial collateral ligament is intact and no meniscocapsular separation is seen. The lateral collateral ligament complex and iliotibial band and popliteus tendon are intact. No poste rior lateral corner injury is seen. No focal osteochondral abnormality of the medial or lateral tibio femoral joint compartments is seen. The patella is normally aligned. There is moderate chondromalacia patellae with focal thinning of the articular cartilage of the lateral patellar facet and subchondra l stress reaction bone marrow edema. The trochlear articular cartilage is unremarkable. The medial an d lateral retinacular ligaments are intact. No Cornejo's cyst is seen. No abnormal knee joint effusion is seen. No loose osteochondral body is evident. No muscle edema is seen. No fracture or marrow infil trative process or bone contusion is seen. IMPRESSION: The inner articular edge of the body of the lateral meniscus is blunted. This could be du e to previous surgical procedure or could represent a small tear of the lateral meniscus. 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 Electronically signed by: Mele Maurice MD (03/12/2021 12:40 PM) [place] [id number]
== END ==
LOC: KCIC MRI 09:02
PROVIDERS: ATTEND Family Medicine
DX: M22.41 Chondromalacia patellae, right knee (principal); M25.461 Effusion, right knee; M25.861 Other specified joint disorders, right knee; M22.42 Chondromalacia patellae, left knee; R60.0 Localized edema
CPT/HCPCS: 73721

== ENCOUNTER → 2021-04-06 | Outpatient (CLI) | payer MEDICAID ==
[2020-09-23 15:00] VITALS: BP 82/47
--- NOTE | 2021-04-06 15:32 | KCIC ---
EXAMINATION: Magnetic resonance imaging (MRI) of the lumbar spine without contrast 04/06/2021 12:40 PM HISTORY: Acute right lower back pain with sciatica TECHNIQUE: Multiplanar multi-weighted MRI of the lumbar spine was performed without intravenous contr ast using the standard lumbar spine protocol. Contrast information: None administered. COMPARISON: MRI lumbar spine 10/07/2020. FINDINGS: The alignment of the lumbar spine is normal. Vertebral bodies demonstrate normal signal intensity on all sequences. There are no compression fractures. The conus medullaris terminates at the level of L1. The distal spinal cord signal intensity is normal. There is mild disc height loss with disc soledad iccation at L3-L4. Mild to moderate disc height loss at L4-L5 with disc desiccation and annular fissu re. There is mild disc bulge identified at T12-L1 Limited views of the abdomen and pelvis show no sof t tissue abnormality. The aorta is normal. T12-L1: There is mild disc bulge. No significant facet arthropathy. No neuroforaminal or spinal canal stenosis. L1-L2: The disc is normal in configuration. There is no facet arthropathy. There is no neuroforaminal stenosis. There is no spinal canal stenosis. L2-L3: The disc is normal in configuration. There is no facet arthropathy. There is no neuroforaminal stenosis. There is no spinal canal stenosis. L3-L4: There is a circumferential disc bulge. Mild facet arthropathy. No significant neuroforaminal s tenosis. Mild spinal canal stenosis. Findings are stable from prior examination. L4-L5: There is a circumferential disc bulge with central disc protrusion. Mild facet arthropathy, le ft greater than right. There is mild bilateral neuroforaminal stenosis. Mild spinal canal stenosis. F indings are not significantly changed since the prior examination. L5-S1: The disc is normal in configuration. There is no facet arthropathy. There is no neuroforaminal stenosis. There is no spinal canal stenosis. IMPRESSION: Mild degenerative changes of the lumbar spine as described in detail above. Findings are not signific antly changed since the prior examination. Electronically signed by: Khushi Hirsch MD (04/06/2021 3:29 PM) [id number]
== END ==
LOC: KCIC MRI 12:20
PROVIDERS: ATTEND Family Medicine
DX: M47.816 Spondylosis without myelopathy or radiculopathy, lumbar region (principal); M51.26 Other intervertebral disc displacement, lumbar region; M48.8X6 Other specified spondylopathies, lumbar region; Q05.7 Lumbar spina bifida without hydrocephalus; M54.41 Lumbago with sciatica, right side; M51.36 Other intervertebral disc degeneration, lumbar region
CPT/HCPCS: 72148

== ENCOUNTER → 2021-04-29 | Outpatient (CLI) | payer MEDICAID ==
[2020-09-23 15:00] VITALS: BP 82/47
--- NOTE | 2021-04-30 11:29 | KCIC ---
EXAM: Right knee, 3 views HISTORY: Fall, right knee pain. COMPARISON: 02/20/2021. FINDINGS: No fractures are identified. Joint spaces are maintained. There are small osteophytes along the media l and lateral compartments. Alignment is normal. There is a small joint effusion. IMPRESSION: 1. Small osteophytes along the medial and lateral compartments with preservation of joint spaces. Tra ce joint effusion. Electronically signed by: Conner Lopez MD (04/30/2021 11:26 AM) [id number]
--- NOTE | 2021-04-30 11:34 | KCIC ---
EXAM: 1. Right elbow 3 views. 2. Right forearm 2 views. 3. Right wrist 3 views. HISTORY: Fall, pain. COMPARISON: None. FINDINGS: No fractures are appreciated at the right elbow. Joint spaces and alignment are maintained. There is no joint effusion. No fractures are appreciated within the forearm. No fractures are appreciated at the right wrist. Negative ulnar variance measures 2 mm. The scapholun ate interval measures 3.6 mm in the scapholunate angle is increased. Soft tissue swelling is suspecte d dorsally. IMPRESSION: 1. Increased scapholunate angle and mild widening of the scapholunate interval. Correlate for scaphol unate ligament injury. Electronically signed by: Conner Lopez MD (04/30/2021 11:31 AM) [id number]
== END ==
LOC: KCIC 15:46
PROVIDERS: ATTEND Physician Assistant Medical
DX: M25.761 Osteophyte, right knee (principal); M25.841 Other specified joint disorders, right hand; M25.531 Pain in right wrist; M25.521 Pain in right elbow; M25.561 Pain in right knee; W19.XXXA Unspecified fall, initial encounter
CPT/HCPCS: 73080; 73090; 73110; 73562